=== PATIENT | female | born 1995 | race Caucasian/White ===

== ENCOUNTER 2017-10-14 12:10 | Emergency (ER) | payer OTHER ==
[2017-10-14 12:18] VITALS: BP 131/78; PULSE 102; TEMP 98; BMI 30.2
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
[2017-10-14] MEDS ORDERED: KETOROLAC TROMETHAMINE 60 MG/2 ML VIAL IM ONE (12:59)
[2017-10-14] MEDS ORDERED: KETOROLAC TROMETHAMINE 60 MG/2 ML VIAL ONE (13:44)
== END 2017-10-14 15:17 | disposition home or self-care (01) ==
LOC: JERFT 12:10
PROC: 3E0233Z Introduction of Anti-inflammatory into Muscle, Percutaneous Approach (ICD-10-PCS; principal; 2017-10-14)
DX: S83.8X2A Sprain of other specified parts of left knee, initial encounter (principal); V47.6XXA Car passenger injured in collision with fixed or stationary object in traffic accident, initial encounter; W22.12XA Striking against or struck by front passenger side automobile airbag, initial encounter; Y92.488 Other paved roadways as the place of occurrence of the external cause; Y93.89 Activity, other specified; Y99.8 Other external cause status
CPT/HCPCS: 70450-TC; 73562-TC-LT-FY; 84703; 99281-25

== ENCOUNTER 2022-06-11 08:15 | Emergency (ER) | payer OTHER ==
[2022-06-11 08:20] VITALS: BP 129/86; PULSE 96; RESP 18; TEMP 98.1; BMI 31.3
[2022-06-11] MEDS ORDERED: IBUPROFEN 600 MG TABLET (FP) PO ONE ×2 (09:41→09:52)
== END 2022-06-11 09:55 | disposition home or self-care (01) ==
LOC: JER 08:15
PROC: 2W3JX1Z Immobilization of Right Finger using Splint (ICD-10-PCS; principal; 2022-06-11)
DX: S62.604A Fracture of unspecified phalanx of right ring finger, initial encounter for closed fracture (principal); W23.1XXA Caught, crushed, jammed, or pinched between stationary objects, initial encounter; Z48.00 Encounter for change or removal of nonsurgical wound dressing
CPT/HCPCS: 73130-TC-RT-FY; 99283-25

== ENCOUNTER 2024-10-09 16:07 | Emergency (ER) | payer OTHER ==
[2024-10-09 16:14] VITALS: BMI 28.3
[2024-10-09] MEDS ORDERED: FAMOTIDINE 20 MG/50 ML IVPB 20 MG/50 ML MG IVPB ONE (18:07)
[2024-10-09] MEDS ORDERED: ACETAMINOPHEN INJECTION 100 ML ONE (18:07)
[2024-10-09] MEDS: FAMOTIDINE 20 MG/50 ML IVPB 20 MG/50 ML MG IVPB ONE (18:17)
[2024-10-09] MEDS: ACETAMINOPHEN 1000 MG/100 ML BAG IVPB ONE (18:17)
[2024-10-09] MEDS: SODIUM CHLORIDE 0.9% 500 ML INFUS.BAG IV ONE (18:18)
[2024-10-09 18:31] LABS: ABSOLUTE IMMATURE GRANULOCYTES 0.01 x10^3/uL (0.0-0.031); BASOPHILS # 0.06 x10^3/uL (0.01-0.08); EOSINOPHIL % 0.4 % (0.7-5.8); EOSINOPHILS # 0.03 x10^3/uL (0.04-0.36); HEMATOCRIT 37.6 % (34.1-44.9); HEMOGLOBIN 12.4 g/dL (11.2-15.7); MEAN CELL VOLUME 85.1 fl (79.4-94.8); MONOCYTE # 0.57 x10^3/uL (0.24-0.86); MONOCYTE % 7.4 % (4.7-12.5); PLATELET COUNT 540 x10^3/uL (182-369); RDW 15.9 % (12.1-16.5)
[2024-10-09 18:33] VITALS: BP 133/85; PULSE 87; RESP 20; TEMP 98.7
[2024-10-09 18:33] LABS: INR 1.06 (0.83-1.09); PROTHROMBIN TIME (PATIENT) 11.6 SEC (9.7-13.0)
[2024-10-09 18:36] LABS: ACTIVATED PTT 33.1 SECONDS (25.2-36.5)
[2024-10-09 18:42] LABS: POTASSIUM 3.7 mmol/L (3.5-5.1)
[2024-10-09 18:44] LABS: CALCIUM 9.5 mg/dL (8.5-10.1)
[2024-10-09 18:45] LABS: BLOOD UREA NITROGEN 9.5 mg/dL (7-18); MAGNESIUM 2.5 mg/dL (1.8-2.4)
[2024-10-09 18:49] LABS: BILIRUBIN,TOTAL 0.4 mg/dL (0.2-1); CREATININE 0.6 mg/dL (0.55-1.3); TOT PROT 7.9 g/dl (6.4-8.2)
[2024-10-10 20:14] LABS: HCV DIAGNOSTIC IN-HOUSE W/RFLX NON-REACTIVE (NONREACTIVE); HIV INTERPRETATION NEGATIVE (NEGATIVE)
== END 2024-10-09 18:44 | disposition left against medical advice (07) ==
LOC: JER 16:07
PROC: 3E033GC Introduction of Other Therapeutic Substance into Peripheral Vein, Percutaneous Approach (ICD-10-PCS; principal; 2024-10-09)
PROC: 3E033NZ Introduction of Analgesics, Hypnotics, Sedatives into Peripheral Vein, Percutaneous Approach (ICD-10-PCS; 2024-10-09)
DX: R63.8 Other symptoms and signs concerning food and fluid intake (principal); R06.02 Shortness of breath; R11.10 Vomiting, unspecified; R05.9 Cough, unspecified; R00.0 Tachycardia, unspecified
CPT/HCPCS: 36415; 71046-TC-FY; 80053; 83690; 83735; 84703; 85025; 85610; 85730; 86803; 87389; 93005; 93010; 99285-25